=== PATIENT | male | born 1960 | race Caucasian/White ===

== ENCOUNTER 2018-07-23 08:32 | Day surgery (SDC) | payer BC, OTHER ==
[~2018-07-23] VITALS: Ht 172.7 cm; Wt 85.7 kg
[~2018-07-23 08:32] MED LIST: ALLE180T33 PO; BACITRACIN PWD 50,000 UNITS VIAL As Ordered ONE; BUPIVACAINE HCL 0.5% 30 ML VIAL As Ordered ONE; LIDOCAINE 1% MDV 20ML VIAL SQ PRN; LIDOCAINE 2% MDV 20 ML VIAL As Ordered ONE; LIVA2TAB PO; NEOSPORIN GU IRRIG 20 ML VIAL As Ordered ONE; dexameTHASONE 4 MG/ML 1ML VIAL (J1100) As Ordered ONE
[2018-07-23] MEDS ORDERED: LR 1,000 ML IV ONE (08:45)
[2018-07-23] MEDS ORDERED: PROPOFOL 500 MG/50 ML VIAL As Ordered ONE (10:02)
[2018-07-23] MEDS ORDERED: LIDOCAINE 2% INJ 100 MG/5 ML SDV (FOR ANES.) As Ordered ONE (10:02)
[2018-07-23] MEDS ORDERED: fentaNYL 100 MCG/2 ML INJECTION (J3010) As Ordered ONE (10:02)
[2018-07-23] MEDS ORDERED: MIDAZOLAM INJ 2 MG/2 ML VIAL (J2250) As Ordered ONE (10:03)
[2018-07-23] MEDS ORDERED: PERCOCET 5MG/325MG TAB PO PRN (12:45)
[2018-07-23 12:55] VITALS: BP 145/89
--- NOTE | 2018-07-23 13:34 | REP ---
Left foot: Three views portably obtained. History: Status post bunionectomy. Findings: Portably obtained views of the left foot demonstrate the patient is status post first metatarsal osteotomy pinned with a metallic screw. There is overlying soft tissue swelling. Overall mineralization pattern is normal. No other significant finding. Impression: Status post bunionectomy first metatarsal. Electronically Signed by Rancho Kendall MD 07/23/2018 04:41 P
--- NOTE | 2018-07-25 07:48 | RO ---
DATE OF PROCEDURE: 07/23/2018 PREPROCEDURE DIAGNOSES: Hallux valgus metatarsus primus varus deformity left foot. POSTPROCEDURE DIAGNOSES: Hallux valgus metatarsus primus varus deformity left foot with first metatarsal bone cyst distal aspect first metatarsal left foot. PROCEDURE: 1. Nery bunionectomy with internal screw fixation left foot. 2. Excision of bone cyst with autogenous bone graft first metatarsal left foot. SURGEON: Douglas Byers DPM CONSUMER LENDER: None. ANESTHESIA: Local MAC. IRRIGATION: Dilute bacitracin, neomycin and polymyxin B solution. ESTIMATED BLOOD LOSS: Less than 5 mL. HARDWARE UTILIZED: Arthrex headless compression screw 3.0 x 26 mm x 1. DESCRIPTION OF OPERATION: On 07/23/2018, this 58-year-old male was taken from his hospital room to the operating room and placed on the operating room table in the supine position. Following the induction of IV sedation and local and regional anesthesia, the left lower extremity was prepped and draped in the usual aseptic manner. Attention was directed to the patient's left foot and after the ankle pneumatic tourniquet was inflated, the following procedure was performed: NERY BUNIONECTOMY WITH INTERNAL SCREW FIXATION, 3.0 MM X 26 MM X 1, LEFT FOOT: Attention was directed to the patient's left foot where there was noted to be a hallux valgus deformity. At this time, a 6 cm incision was placed over the first metatarsal phalangeal joint medial to the extensor tendon. The incision was deepened through subcutaneous tissues and all coursing venous tributaries were identified, underscored, clamped, cut, ligated and electrocoagulated as necessary. A linear capsulotomy was then performed in the same plane as the original skin incision. The capsular and periosteal structures were then dissected free in one continuous layer dorsal, medial and lateral thus creating a capsular periosteal type envelope. This delivered into view the hypertrophied medial eminence of the first metatarsal which was osteotomized from distal to proximal through and through. Dissection was then carried into the first intermetatarsal space where dissection was carried down to the level of the fibular sesamoid which was released from the conjoined tendon. Attention was directed to the medial surface of the first metatarsal where a V-shaped osteotomy was performed with a long plantar and short dorsal wing. Upon creation of this osteotomy, the huge bone cyst was seen encompassing the first metatarsal. At this time, the following procedure was performed: EXCISION OF BONE CYST FIRST METATARSAL WITH AUTOGENOUS BONE GRAFT: The cyst was then curetted of its lining and this cyst measured approximately 6 mm x 10 mm upon debridement. The debridement was performed and the osteotomy was then transposed approximately 35% of the width of the shaft of the first metatarsal and fixated with an Arthrex headless compression screw 3.0 x 26 mm which gave good compression of the osteotomy. The redundant cortical spike was then osteotomized from dorsal to plantar creating a autogenous bone graft. This was then trimmed into smaller pieces with Ai bone cutting forceps and packed into the subchondral cyst filling the cyst and reconstituting the bone. The wound was then flushed with copious amounts of dilute bacitracin, neomycin and polymyxin B solution. Attention was directed toward closure where the capsular structures were coapted and maintained utilizing #2-0 Monocryl in a simple interrupted fashion. Subcutaneous tissues were coapted and maintained using #4-0 Monocryl in a simple interrupted type fashion. Skin incision coapted and maintained utilizing #5-0 Monocryl in a continuous subcuticular type fashion. This was additionally reinforced with Steri-Strips. Following the completion of the surgical procedure, 4 mg of dexamethasone sodium phosphate was instilled proximal to the surgical site. Attention was directed towards bandaging where a sterile compressive bandage was applied consisting of Adaptic, 4x4s, 4x4 splints, Danna, Kerlix and Coban. The ankle pneumatic tourniquet was then rapidly deflated and instantaneous capillary filling time was noted to digits of 1 through 5 of the patient's left foot. The patient having apparently tolerated the surgical procedure well was taken from the operating room (OR) to the recovery room for further monitoring by the anesthesia department.
== END 2018-07-23 13:05 | disposition home or self-care (01) ==
LOC: M SDC 08:32
PROVIDERS: ATTEND Podiatrist
DX: M20.12 Hallux valgus (acquired), left foot (principal); M85.672 Other cyst of bone, left ankle and foot
CPT/HCPCS: 28106; 28296; 73630; 88300; C1713; J0690; J1100; J2250; J3010

== ENCOUNTER 2018-08-31 05:41 | Day surgery (SDC) | payer BC, OTHER ==
[~2018-08-31] VITALS: Ht 180.3 cm; Wt 87.1 kg
[~2018-08-31 05:41] MED LIST changes: -BACITRACIN PWD 50,000 UNITS VIAL As Ordered ONE; -BUPIVACAINE HCL 0.5% 30 ML VIAL As Ordered ONE; -LIDOCAINE 1% MDV 20ML VIAL SQ PRN; -LIDOCAINE 2% MDV 20 ML VIAL As Ordered ONE; -NEOSPORIN GU IRRIG 20 ML VIAL As Ordered ONE; -dexameTHASONE 4 MG/ML 1ML VIAL (J1100) As Ordered ONE
[2018-08-31] MEDS ORDERED: ceFAZolin SOD 1 GM in D5W MINI-BAG PLUS 50 ML IV ONE (06:00)
[2018-08-31] MEDS ORDERED: LR 1,000 ML IV ONE (06:00)
[2018-08-31] MEDS ORDERED: LIDOCAINE 1% MDV 20ML VIAL SQ PRN (06:00)
[2018-08-31] MEDS ORDERED: SUGAMMADEX SODIUM 500 MG/5 ML VIAL (BRIDION) As Ordered ONE (07:01)
[2018-08-31] MEDS ORDERED: ROCURONIUM BROMIDE 50 MG/5 ML VIAL As Ordered ONE ×2 (07:01→08:49)
[2018-08-31] MEDS ORDERED: PROPOFOL 200 MG/20 ML VIAL As Ordered ONE ×2 (07:01→10:18)
[2018-08-31] MEDS ORDERED: ONDANSETRON 4MG/2ML VIAL (J2405) As Ordered ONE (07:01)
[2018-08-31] MEDS ORDERED: LIDOCAINE 2% INJ 100 MG/5 ML SDV (FOR ANES.) As Ordered ONE ×3 (07:01→10:29)
[2018-08-31] MEDS ORDERED: dexameTHASONE 4 MG/ML 1ML VIAL (J1100) As Ordered ONE (07:01)
[2018-08-31] MEDS ORDERED: KETOROLAC 60 MG/2 ML VIAL (J1885) As Ordered ONE (07:01)
[2018-08-31] MEDS ORDERED: MIDAZOLAM INJ 2 MG/2 ML VIAL (J2250) As Ordered ONE (07:02)
[2018-08-31] MEDS ORDERED: KETAMINE HCL 200 MG/20 ML VIAL As Ordered ONE (07:02)
[2018-08-31] MEDS ORDERED: fentaNYL 100 MCG/2 ML INJECTION (J3010) As Ordered ONE (07:02)
[2018-08-31] MEDS ORDERED: BUPIVACAINE/EPIN 0.25% 30 ML VIAL As Ordered ONE (07:11)
[2018-08-31] MEDS ORDERED: METHOCARBAMOL INJection 1,000 MG, VIAL MATE ADAPTER 1 EACH in NS 250 ML IV ONE (07:45)
--- NOTE | 2018-08-31 09:36 | RO ---
DATE OF PROCEDURE: 08/31/2018 PREOPERATIVE DIAGNOSIS: Right inguinal hernia. POSTOPERATIVE DIAGNOSIS: Right inguinal hernia. PROCEDURE: Robotic-assisted right inguinal hernia repair with ProGrip mesh. SURGEON: Dr. Dudley Sumner FORESTRY HUNTER: Jacqui Adrian (Provided instrument exchange, mesh placement and abdominal wall closure, as well as trocar placement. ESTIMATED BLOOD LOSS: Minimal. FLUIDS: Crystalloid. BRIEF PROCEDURE SUMMARY: The patient was seen in the preoperative area and evaluated for his right inguinal hernia and indeed had a small right inguinal hernia appreciated on his re-examination preoperatively. However, he had been also complaining of some periumbilical discomfort and pain and preoperatively we had seen a minuscule umbilical hernia on his CAT scan. However, he is complaining of pain and discomfort on the lateral abdominal wall lateral to the rectus muscle bilaterally and sharp stabbing pains. I did not feel that this was related to his umbilical hernia and thus I had discussed with him not proceeding with any type of umbilical hernia repair and felt this was more likely secondary to some musculoskeletal complaints that he has. In any case, the patient was brought to the operating room, preoperatively marked on the right inguinal area, and was prepped and draped in the usual sterile fashion. Local lidocaine was placed in the epigastric area after prepping and draping in the usual sterile fashion with preoperative antibiotics given. A Veress needle was placed into the abdominal cavity and insufflated to 15 mm of pressure. A dilating 5 mm trocar was placed in the epigastric area and under direct visualization two lateral 8 mm trocars were placed and the camera port was replaced in the supraumbilical area. Next the patient was placed in steep Trendelenburg position. There was an obvious small direct inguinal hernia and after dissection there was a small lipoma of the cord appreciated. In any case, the peritoneum was incised using monopolar cut scissors and blunt dissection as well as some minimal electrocautery on this loose areolar tissue. It was performed all the way to the cord structures to the indirect hernia sac which revealed mostly some diastasis in this area and a small indirect hernia with evidence of a lipoma of the cord. The lipoma of the cord was reduced and was transected at its base and left in the preperitoneal space. Pancho's ligament was exposed as well as backside of the pubis. Once all this area was exposed, the peritoneum was mobilized quite nicely off the vas vessels. Then a ProGrip mesh was cut to the appropriate size and placed in the preperitoneal space and pressed into position. It covered the direct as well as indirect components quite nicely. The peritoneum was closed with a running #2-0 V-Loc. The trocars were all removed under direct visualization and #4-0 Vicryl was used close the skin incisions. Steri-Strips and a dry sterile dressing was applied. The patient was awakened, extubated and brought to the recovery room awake, alert and hemodynamically stable. Sponge and needle counts were correct times two.
[2018-08-31] MEDS ORDERED: HYDROMORPHONE HCL 0.5 MG/ 0.5 ML SYRINGE (J1170 PER 1) IV PRN (09:45)
[2018-08-31] MEDS ORDERED: fentaNYL 100 MCG/2 ML INJECTION (J3010) IV PRN (09:45)
[2018-08-31] MEDS ORDERED: LR 1,000 ML IV SCH ×2 (09:45→10:00)
[2018-08-31] MEDS ORDERED: ONDANSETRON 4MG/2ML VIAL (J2405) IV PRN (10:00)
[2018-08-31] MEDS ORDERED: NORCO, ANEXSIA 5/325MG TABLET (HYDROcodone/ACETAMINOPHEN) PO PRN (10:00)
[2018-08-31 11:45] VITALS: BP 152/82
[2018-08-31] MEDS ORDERED: KETOROLAC 30 MG/ML VIAL (J1885) IV SCH (13:00)
== END 2018-08-31 12:00 | disposition home or self-care (01) ==
LOC: M SDC 05:41
PROVIDERS: ATTEND Surgery
DX: K40.90 Unilateral inguinal hernia, without obstruction or gangrene, not specified as recurrent (principal); E78.5 Hyperlipidemia, unspecified; K21.9 Gastro-esophageal reflux disease without esophagitis; Z91.040 Latex allergy status; Z91.030 Bee allergy status; Z88.8 Allergy status to other drugs, medicaments and biological substances; Z79.899 Other long term (current) drug therapy
CPT/HCPCS: 49650; C1781; J0690; J1100; J1885; J2250; J2405; J2800; J3010

== ENCOUNTER → 2018-10-11 | Outpatient (CLI) | payer OTHER ==
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
== END ==
LOC: M PAIN 08:45
PROVIDERS: ATTEND Anesthesiology
DX: M79.18 Myalgia, other site (principal); M54.2 Cervicalgia; M25.511 Pain in right shoulder; M47.812 Spondylosis without myelopathy or radiculopathy, cervical region; G89.29 Other chronic pain; E78.00 Pure hypercholesterolemia, unspecified; M19.90 Unspecified osteoarthritis, unspecified site; Z79.899 Other long term (current) drug therapy; Z88.8 Allergy status to other drugs, medicaments and biological substances; Z91.09 Other allergy status, other than to drugs and biological substances; Z91.040 Latex allergy status; Z91.030 Bee allergy status

== ENCOUNTER → 2018-12-29 | Outpatient (CLI) | payer OTHER ==
[~2018-12-29] MED LIST changes: +BUPIVACAINE HCL 0.25% 10 ML VIAL As Ordered ONE; +BUPIVACAINE HCL 0.25% 30 ML VIAL As Ordered ONE; +TRIAMCINOLONE ACETONIDE SUSP 40 MG/ML VIAL (J3301) As Ordered ONE
--- NOTE | 2019-01-07 00:47 | ECWPNPC ---
PATIENT NAME: ORLIN ORTA : 1960 GENDER: MALE VISIT DATE: 12/29/2018 DISCHARGE DATE: 12/29/18 1143 VISIT LOCKED DATE TIME: PHYSICIAN: AUGUSTO PEREZ MD RESOURCE: AUGUSTO PEREZ MD REASON FOR APPOINTMENT 1. TPI RIGHT SHOULDER HISTORY OF PRESENT ILLNESS HISTORY OF PRESENT ILLNESS: PAIN THE PATIENT DESCRIBES THE PAIN... FALL RISK SCREENING: SCREENING :NO FALLS REPORTED IN THE LAST YEAR CURRENT MEDICATIONS TAKING ROSANNA 180 MG TABLET 1 TABLET NEEDED ORALLY ONCE A DAY, NOTES: 4-5 DAYS AGO TAKING FLAXSEED OIL 1000 MG CAPSULE DIRECTED ORALLY DAILY, NOTES: 12/29 629 TAKING VITAMIN B COMPLEX - TABLET DIRECTED ORALLY DAILY, NOTES: 3 DAYS AGO TAKING VIAGRA 100 MG TABLET DIRECTED ORALLY 1 TAB 1 HOUR PRIOR TO SEXUALLY INTERCOURSE, NOTES: NONE RECENT NOT-TAKING LIVALO 2 MG TABLET 1 TABLET ORALLY ONCE A DAY NOT-TAKING FISH OIL 306 MG CAPSULE ORALLY DISCONTINUED CIPRO 500 MG TABLET 1 TABLET ORALLY TWICE A DAY DISCONTINUED ZETIA 10 MG TABLET 1 TABLET ORALLY ONCE A DAY DISCONTINUED CVS VITAMIN B-6 50 MG TABLET 1 TABLET ORALLY ONCE A DAY DISCONTINUED ATORVASTATIN CALCIUM 10 MG TABLET 1 TABLET ORALLY ONCE A DAY DISCONTINUED NAPROXEN 500 MG TABLET 1 TABLET NEEDED ORALLY EVERY 12 HRS DISCONTINUED XIAFLEX 0.9 MG SOLUTION RECONSTITUTED 0.58 MG INTO PENILE PLAQUE(S) INJECTION UP TO 2 TIMES APPROXIMATELY EVERY 6 WEEKS MEDICATION LIST REVIEWED AND RECONCILED WITH THE PATIENT PAST MEDICAL HISTORY PEYRONIE'S DISEASE HYPERCHOLESTEROLEMIA BACK PAIN ARTHRITIS ENLARGED SPLEEN AND LIVER HERNIATED DISKS R SHOULDER INJURY- SEEING DR BREWER RIGHT NECK AND SHOULDER PAIN ALLERGIES LATEX (FOR ALLERGY USE ONLY): SORES/HIVES - ALLERGY BEE STING: ANAPHYLAXIS - ALLERGY STATINS: ITCHING - ALLERGY SURGICAL HISTORY 3 LEFT KNEE SURGERIES (SCAR TISSUE) 2013 & UNKNOWN YEARS 3 RIGHT KNEE SURGERIES - ACL REPAIR, SCREWS PLACED LEFT AND RIGHT INGUINAL HERNIA XIAFLEX INJECTIONS CYST REMOVAL ON LEFT FOOT W/ SCREW PLACEMENT 06/2018 RIGHT CARPAL TUNNEL 07/2018 FAMILY HISTORY FATHER: , HEART DISEASE, DIAGNOSED WITH HEART DISEASE, OTHER MOTHER: , HEART DISEASE SIBLINGS: 1 BROTHER [place], HYPERTENSION; 1 SISTER HEART ISSUES, HYPERTENSION DAUGHTER(S): ALIVE MATERNAL GRAND FATHER: LUNG CANCER MATERNAL GRAND MOTHER: DM, CVA, ARTHRITIS 1 BROTHER(S) , 1 SISTER(S) . 3DAUGHTER(S) - HEALTHY. FATHER - ANEURYSMMOTHER - CHFBROTHER - HEART ATTACKSNO KNOWN FAMILY HISTORY OF ANY UROLOGICALLY RELATED DISEASES\/CANCERS. SOCIAL HISTORY GENERAL: TOBACCO USE ARE YOU A:: NEVER SMOKER. OTHERS AT HOME: SPOUSE. EDUCATION LEVEL OF EDUCATION:FINISHED [employer] DEGREE DIET: REGULAR. LANGUAGE FRISIAN. RECREATIONAL DRUG USE DRUG USE?NO EXERCISE: WALKS. LEARNING BARRIERS / SPECIAL NEEDS BARRIERS TO LEARNING?NO HEARING IMPAIRED?NO VISION IMPAIRED?YES :CORRECTIVE LENSES COGNITIVELY IMPAIRED?NO READINESS TO LEARN?YES LEARNING PREFERENCES?YES :BOOKLETS, OTHER (PLEASE COMMENT) HANDS-ON LEARNING CAPABILITIES PRESENT?YES EMOTIONAL BARRIERS?NO SPECIAL DEVICES?NO BLACK TOP MACHINE OPERATOR NEEDED?NO PAIN CLINIC PFS, CLERGY, PUBLIC HEALTH REFERRALS HAS THE PATIENT BEEN EDUCATED REGARDING HIS/HER PLAN OF CARE?YES HAS THE PATIENT BEEN EDUCATED REGARDING PAIN, THE RISK FOR PAIN, THE IMPORTANCE OF EFFECTIVE PAIN MANAGEMENT, AND THE PAIN ASSESSMENT PROCESS?YES LATEX QUESTIONNAIRE LATEX ALLERGY : HAVE YOU EVER DEVELOPED ANY TYPE OF REACTION AFTER HANDLING LATEX PRODUCTS SUCH RUBBER GLOVES, CONDOMS, DIAPHRAGMS, BALLOONS, SOCKS, OR UNDERWEAR?YES - PLEASE INDICATE :RUBBER GLOVES LATEX ALLERGY : HAVE YOU EVER DEVELOPED ANY TYPE OF REACTION DURING OR AFTER DENTAL APPOINTMENT, VAGINAL/RECTAL EXAMINATION, SURGICAL PROCEDURE, OR ANY OTHER EXPOSURE?YES - PLEASE INDICATE :DENTAL PROCEDURE LATEX RISK : HAVE YOU EVER HAD ANY DIFFICULTY BREATHING OR HIVES AFTER EATING OR HANDLING ANY FRUITS, OR VEGETABLES; SUCH KIWI, BANANAS, STONE FRUITS, OR CHESTNUTSNO LATEX RISK : DO YOU HAVE A PREVIOUS PERSONAL HISTORY OF MORE THAN NINE SURGERIES, SPINA BIFIDA, OR REPEATED CATHERTIZATIONS? YES - PLEASE INDICATE : > 9 SURGERIES LATEX RISK : ARE YOU FREQUENTLY EXPOSED TO LATEX PRODUCTS IN YOUR OCCUPATION?NO DATE ASKED : 12/29/2018 CAFFEINE 1-2/DAY,. ADVANCE DIRECTIVE ADVANCE DIRECTIVE DISCUSSED WITH PATIENT:YES 12/29/18 PT. DOES NOT HAVE ANY ADVANCED DIRECTIVES AND HE DECLINES HCP INFORMATION AT THIS TIME. AD AMISH NO SHINTO BELIEFS THAT WOULD IMPACT HEALTH CARE. MARITAL STATUS: . ALCOHOL SCREENING POINTS: 6, INTERPRETATION: POSITIVE. OCCUPATION: RETIRED. SEXUAL HX HAD SEX IN THE LAST 12 MONTHS (VAGINAL, ORAL, OR ANAL)?: YES, WITH: WOMEN ONLY, USE PROTECTION?: NO, PREVENTION STRATEGIES DISCUSSED:: OTHER, HAVE YOU EVER HAD AN STD?: NO. REVIEWED WITH PATIENT 10/11/18 3257 JS. HOSPITALIZATION/MAJOR DIAGNOSTIC PROCEDURE SURGERY RELATED REVIEW OF SYSTEMS REVIEWED BY: PROVIDER: . CONSTITUTIONAL: ANY CHANGE IN YOUR MEDICAL CONDITION? NO . CHILLS NO . FEVER NO . INFECTION: DO YOU HAVE NEW INFECTIONS? NO . DO YOU HAVE HISTORY OF MRSA? NO . MUSCULOSKELETAL: ANY NEW PATTERNS OF PAIN OR NUMBNESS? YES, PAIN AND NUMBNESS IS GOING DOWN HIS ENTIRE RIGHT ARM . GASTROENTEROLOGY: ANY NEW CHANGE IN BOWEL CONTROL? NO . GENITOURINARY: ANY NEW CHANGE IN BLADDER CONTROL? NO . IS THERE A CHANCE YOU COULD BE ? NO . HEMATOLOGY/LYMPH: DO YOU TAKE ANY BLOOD THINNERS? (FOR EXAMPLE- COUMADIN, PLAVIX, AGGRENOX, PLATEL, PRADAXA, OR XARELTO) NO . WHEN WAS YOUR LAST DOSE? DATE: TIME: . NEUROLOGY: HAVE YOU FALLEN IN THE PAST 12 MONTHS? NO . ANY NEW EXTREMITY NUMBNESS OR WEAKNESS? YES, PAIN AND NUMBNESS ENTIRE RIGHT ARM FOR THE PAST 3-4 WEEKS. BOTH HANDS GO NUMB WHEN HE SLEEPS AT NIGHT . CARDIOLOGY: DO YOU HAVE A PACEMAKER OR DEFIBRILLATOR? NO . RESPIRATORY: HAVE YOU BEEN SICK IN THE PAST WEEK? NO . FEVER NO . FLU LIKE SYMPTOMS? NO . COUGH NO . INTEGUMENTARY: DO YOU HAVE ANY RASHES OR OPEN SORES? NO . ALLERGIC/IMMUNO: ARE YOU ALLERGIC TO IV DYE? NO . ANY NEW ALLERGIES? NO . PSYCHIATRIC: DO YOU HAVE THOUGHTS OF HURTING YOURSELF OR SOMEONE ELSE? NO . ARE YOU ABUSED, NEGLECTED, OR IN AN UNSAFE ENVIRONMENT? NO . ENDOCRINOLOGY: ARE YOU DIABETIC? NO . OTHER: DO YOU NEED ANY PRESCRIPTIONS? NO . IF YES, PLEASE LIST: ____ . ANY NEW PROBLEMS WITH YOUR MEDICATIONS? NO . WHEN DID YOU LAST EAT? 12/28/18 1800 . WHEN DID YOU LAST DRINK? 12/29/18 0630 . WHAT DID YOU LAST DRINK? COFFEE WITH MILK. DR. PEREZ AWARE AND IN TO SPEAK WITH PT. OKAY TO PROCEED THE PROCEDURE. . NAME OF PERSON DRIVING YOU HOME? MARIUSZ . DO YOU HAVE ANY OTHER QUESTIONS OR CONCERNS NO . VITAL SIGNS WT 190.2 LBS, HT 71 IN, BMI 26.52 INDEX, BP 136/86 MM HG, HR 51 /MIN, RR 18 /MIN, TEMP 98.6 F, OXYGEN SAT % 94%, SAFE IN ENV? (Y/N) Y, NA INITIALS AW 0941, REVIEWED BY: AD. ASSESSMENTS MYALGIA, OTHER SITE - M79.18 (PRIMARY) PROCEDURES PN TRIGGER POINT INJECTION WITH STEROIDS PRE PROCEDURE DIAGNOSIS 1. MYALGIA 2. PAIN AT RIGHT SHOULDER AREA POST PROCEDURE DIAGNOSIS 1. MYALGIA 2. PAIN AT RIGHT SHOULDER AREA PROCEDURE TRIGGER POINT INJECTION AT RIGHT SHOULDER AREA SURGEON DR. AUGUSTO PEREZ LIVESTOCK RANCHER NONE ANESTHESIA LOCAL PRE PROCEDURE NOTE THE PATIENT HAS A HISTORY OF CHRONIC PAIN AT THE RIGHT SHOULDER AREA. I EVALUATE THE PATIENT AND REVIEWED THE CHART. THERE IS EVIDENCE OF BANDS OF TISSUE WITH RESTRICTION OF MOVEMENT AND PRESENCE OF TRIGGER POINT AT THE AFFECTED AREA. I WENT OVER THE RISKS, ALTERNATIVES, AND BENEFITS ASSOCIATED WITH THIS PROCEDURE. THE PATIENT WOULD LIKE TO PROCEED AND GIVE CONSENT TO PERFORMED THE PROCEDURE. THE PATIENT DENIES UNEXPLAINABLE WEIGHT LOSS, FEVER, CHILLS, OR NEW CHANGES IN URINARY OR BOWEL CONTROL DESCRIPTION OF PROCEDURE THE PATIENT WAS BROUGHT TO THE PROCEDURE ROOM AND PLACED IN THE SITTING POSITION. THE AREA WAS CLEANED WITH ALCOHOL. THE PROCEDURE WAS DONE USING ASEPTIC STERILE TECHNIQUE. I CHECKED LATERALITY AND THE LEVEL WHERE THE PROCEDURE WAS GOING TO BE PERFORMED WITH THE PATIENT AND THE SUPPORTING STAFF AT THE MOMENT OF THE TIME OUT IN THE PROCEDURE ROOM. USING A 25-GAUGE NEEDLE, TRIGGER POINTS WERE INJECTED AT THE RIGHT SHOULDER AREA WITH A TOTAL OF 40 ML OF BUPIVACAINE 0.25% AND KENALOG 40 MG. THERE WAS NO EVIDENCE OF BLOOD, PARESTHESIA OR CEREBROSPINAL FLUID DURING THE PROCEDURE. THE PATIENT WAS SENT TO THE RECOVERY ROOM. THE PATIENT WAS MOVING THE EXTREMITIES AND DOING WELL. THERE WAS NO COMPLICATION DURING THE PROCEDURE POST PROCEDURE NOTE THE PATIENT WILL BE SEEN IN A FOLLOW UP IN THE NEXT FEW WEEKS. INSTRUCTIONS WERE GIVEN, QUESTIONS WERE ANSWERED, AND THE PATIENT EXPRESSED UNDERSTANDING AND AGREES WITH THE PLAN. I, CONNIE ARCHULETA, DOCUMENTED THE ABOVE INFORMATION ACTING A SCRIBE FOR DR. PEREZ. I HAVE REVIEWED THE ABOVE DOCUMENT, WRITTEN BY CONNIE MATTA AND I VERIFY THAT IT IS ACCURATE. PROCEDURE CODES 05343 INJ TRIGGER POINT 06/30 [facility] [place] DISPOSITION & COMMUNICATION FOLLOW UP 3 WEEKS ELECTRONICALLY SIGNED BY AUGUSTO PEREZ MD, MD ON 01/06/2019 AT 01:53 PM EDT DISCLAIMER : THIS IS A VISIT SUMMARY EXTRACTED FROM THE [employer] CHART. IT IS NOT A COPY OF THE [employer] PROGRESS NOTE. MTDD
== END ==
LOC: M PAIN 09:30
PROVIDERS: ATTEND Anesthesiology
DX: M79.18 Myalgia, other site (principal); E78.00 Pure hypercholesterolemia, unspecified; M19.90 Unspecified osteoarthritis, unspecified site; R16.2 Hepatomegaly with splenomegaly, not elsewhere classified; M54.2 Cervicalgia; M25.511 Pain in right shoulder; Z79.899 Other long term (current) drug therapy; Z91.040 Latex allergy status; Z91.030 Bee allergy status; Z88.8 Allergy status to other drugs, medicaments and biological substances
CPT/HCPCS: 20552; J3301

== ENCOUNTER → 2019-02-08 | Outpatient (CLI) | payer OTHER ==
[~2019-02-08] MED LIST changes: -BUPIVACAINE HCL 0.25% 10 ML VIAL As Ordered ONE; -BUPIVACAINE HCL 0.25% 30 ML VIAL As Ordered ONE; -TRIAMCINOLONE ACETONIDE SUSP 40 MG/ML VIAL (J3301) As Ordered ONE
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
== END ==
LOC: M PAIN 14:45
PROVIDERS: ATTEND Anesthesiology
DX: M79.18 Myalgia, other site (principal); M25.511 Pain in right shoulder; G89.29 Other chronic pain; E78.00 Pure hypercholesterolemia, unspecified; M19.90 Unspecified osteoarthritis, unspecified site; Z88.8 Allergy status to other drugs, medicaments and biological substances; Z91.030 Bee allergy status; Z91.040 Latex allergy status; Z79.899 Other long term (current) drug therapy

== ENCOUNTER → 2019-03-24 | Outpatient (CLI) | payer OTHER ==
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
== END ==
LOC: M PAIN 11:45
PROVIDERS: ATTEND Anesthesiology
DX: M79.18 Myalgia, other site (principal); M54.2 Cervicalgia; M25.511 Pain in right shoulder; M25.512 Pain in left shoulder; G89.29 Other chronic pain; E78.00 Pure hypercholesterolemia, unspecified; M19.90 Unspecified osteoarthritis, unspecified site; Z88.8 Allergy status to other drugs, medicaments and biological substances; Z91.030 Bee allergy status; Z91.040 Latex allergy status; Z79.899 Other long term (current) drug therapy

== ENCOUNTER → 2019-05-18 | Outpatient (CLI) | payer OTHER ==
[~2019-05-18] MED LIST changes: +BUPIVACAINE HCL 0.25% 10 ML VIAL As Ordered ONE; +BUPIVACAINE HCL 0.25% 30 ML VIAL As Ordered ONE; +TRIAMCINOLONE ACETONIDE SUSP 40 MG/ML VIAL (J3301) As Ordered ONE
--- NOTE | 2019-05-26 02:12 | ECWPNPC ---
PATIENT NAME: ORLIN ORTA : 1960 GENDER: MALE VISIT DATE: 05/18/2019 DISCHARGE DATE: 05/18/19 1623 VISIT LOCKED DATE TIME: PHYSICIAN: AUGUSTO PEREZ MD RESOURCE: AUGUSTO PEREZ MD REASON FOR APPOINTMENT 1. TPI HISTORY OF PRESENT ILLNESS HISTORY OF PRESENT ILLNESS: PAIN THE PATIENT DESCRIBES THE PAIN... FALL RISK SCREENING: SCREENING :NO FALLS REPORTED IN THE LAST YEAR CURRENT MEDICATIONS TAKING ROSANNA 180 MG TABLET 1 TABLET NEEDED ORALLY ONCE A DAY, NOTES: NONE RECENT TAKING FLAXSEED OIL 1000 MG CAPSULE DIRECTED ORALLY DAILY, NOTES: 05/18 7AM TAKING VITAMIN B COMPLEX - TABLET DIRECTED ORALLY DAILY, NOTES: 05/18 7AM NOT-TAKING VIAGRA 100 MG TABLET DIRECTED ORALLY 1 TAB 1 HOUR PRIOR TO SEXUALLY INTERCOURSE, NOTES: NONE RECENT NOT-TAKING LIVALO 2 MG TABLET 1 TABLET ORALLY ONCE A DAY NOT-TAKING FISH OIL 306 MG CAPSULE ORALLY MEDICATION LIST REVIEWED AND RECONCILED WITH THE PATIENT PAST MEDICAL HISTORY PEYRONIE'S DISEASE HYPERCHOLESTEROLEMIA BACK PAIN ARTHRITIS ENLARGED SPLEEN AND LIVER HERNIATED DISKS R SHOULDER INJURY- SEEING DR BREWER RIGHT NECK AND SHOULDER PAIN ALLERGIES LATEX (FOR ALLERGY USE ONLY): SORES/HIVES - ALLERGY BEE STING: ANAPHYLAXIS - ALLERGY STATINS: ITCHING - ALLERGY SURGICAL HISTORY 3 LEFT KNEE SURGERIES (SCAR TISSUE) 2012 & UNKNOWN YEARS 3 RIGHT KNEE SURGERIES - ACL REPAIR, SCREWS PLACED LEFT AND RIGHT INGUINAL HERNIA XIAFLEX INJECTIONS CYST REMOVAL ON LEFT FOOT W/ SCREW PLACEMENT 06/2018 RIGHT CARPAL TUNNEL 07/2018 FAMILY HISTORY FATHER: , HEART DISEASE, DIAGNOSED WITH UNSPECIFIED HEART DISEASE, OTHER SPECIFIED CONDITIONS INFLUENCING HEALTH STATUS MOTHER: , UNSPECIFIED HEART DISEASE SIBLINGS: 1 BROTHER [place], HYPERTENSION; 1 SISTER HEART ISSUES, HYPERTENSION DAUGHTER(S): ALIVE MATERNAL GRAND FATHER: LUNG CANCER MATERNAL GRAND MOTHER: DM, CVA, ARTHRITIS 1 BROTHER(S) , 1 SISTER(S) . 3DAUGHTER(S) - HEALTHY. FATHER - ANEURYSMMOTHER - CHFBROTHER - HEART ATTACKSNO KNOWN FAMILY HISTORY OF ANY UROLOGICALLY RELATED DISEASES\/CANCERS. SOCIAL HISTORY GENERAL: TOBACCO USE ARE YOU A:: NEVER SMOKER. OTHERS AT HOME: SPOUSE. EDUCATION LEVEL OF EDUCATION:FINISHED [employer] DEGREE DIET: REGULAR. LANGUAGE [place] CITIZEN. RECREATIONAL DRUG USE DRUG USE?NO EXERCISE: WALKS. LEARNING BARRIERS / SPECIAL NEEDS BARRIERS TO LEARNING?NO HEARING IMPAIRED?NO VISION IMPAIRED?YES COGNITIVELY IMPAIRED?NO :CORRECTIVE LENSES READINESS TO LEARN?YES LEARNING PREFERENCES?YES :BOOKLETS, OTHER (PLEASE COMMENT) HANDS-ON LEARNING CAPABILITIES PRESENT?YES EMOTIONAL BARRIERS?NO SPECIAL DEVICES?NO SPORTS INTERN NEEDED?NO PAIN CLINIC PFS, CLERGY, PUBLIC HEALTH REFERRALS HAS THE PATIENT BEEN EDUCATED REGARDING HIS/HER PLAN OF CARE?YES HAS THE PATIENT BEEN EDUCATED REGARDING PAIN, THE RISK FOR PAIN, THE IMPORTANCE OF EFFECTIVE PAIN MANAGEMENT, AND THE PAIN ASSESSMENT PROCESS?YES LATEX QUESTIONNAIRE LATEX ALLERGY : HAVE YOU EVER DEVELOPED ANY TYPE OF REACTION AFTER HANDLING LATEX PRODUCTS SUCH RUBBER GLOVES, CONDOMS, DIAPHRAGMS, BALLOONS, SOCKS, OR UNDERWEAR?YES - PLEASE INDICATE :RUBBER GLOVES LATEX ALLERGY : HAVE YOU EVER DEVELOPED ANY TYPE OF REACTION DURING OR AFTER DENTAL APPOINTMENT, VAGINAL/RECTAL EXAMINATION, SURGICAL PROCEDURE, OR ANY OTHER EXPOSURE?YES - PLEASE INDICATE :DENTAL PROCEDURE LATEX RISK : HAVE YOU EVER HAD ANY DIFFICULTY BREATHING OR HIVES AFTER EATING OR HANDLING ANY FRUITS, OR VEGETABLES; SUCH KIWI, BANANAS, STONE FRUITS, OR CHESTNUTSNO LATEX RISK : DO YOU HAVE A PREVIOUS PERSONAL HISTORY OF MORE THAN NINE SURGERIES, SPINA BIFIDA, OR REPEATED CATHERIZATIONS? YES - PLEASE INDICATE : > 9 SURGERIES LATEX RISK : ARE YOU FREQUENTLY EXPOSED TO LATEX PRODUCTS IN YOUR OCCUPATION?NO DATE ASKED : 05/18/2019 CAFFEINE 1-2/DAY,. ADVANCE DIRECTIVE ADVANCE DIRECTIVE DISCUSSED WITH PATIENT:YES PT. DOES NOT HAVE ANY ADVANCED DIRECTIVES AND HE DECLINES HCP INFORMATION AT THIS TIME. ADVENTISM NO ISLAM BELIEFS THAT WOULD IMPACT HEALTH CARE. MARITAL STATUS: . ALCOHOL SCREENING POINTS: 6, INTERPRETATION: POSITIVE. OCCUPATION: RETIRED. SEXUAL HX HAD SEX IN THE LAST 12 MONTHS (VAGINAL, ORAL, OR ANAL)?: YES, WITH: WOMEN ONLY, USE PROTECTION?: NO, PREVENTION STRATEGIES DISCUSSED:: OTHER, HAVE YOU EVER HAD AN STD?: NO. REVIEWED WITH PATIENT 10/11/18 3709 JS REVIEWED WITH PT 02/08/19 9473 BV. HOSPITALIZATION/MAJOR DIAGNOSTIC PROCEDURE SURGERY RELATED REVIEW OF SYSTEMS REVIEWED BY: PROVIDER: . CONSTITUTIONAL: ANY CHANGE IN YOUR MEDICAL CONDITION? NO . CHILLS NO . FEVER NO . INFECTION: DO YOU HAVE NEW INFECTIONS? NO . DO YOU HAVE HISTORY OF MRSA? NO . MUSCULOSKELETAL: ANY NEW PATTERNS OF PAIN OR NUMBNESS? PT STATES THAT HE SLID ON ICE AND LANDED ON HAND/ARM FUNNY, FELT NUMBNESS IN FINGERS FOR A LITTLE WHILE, SENSATION HAS RESOLVED. MD PEREZ AWARE . GASTROENTEROLOGY: ANY NEW CHANGE IN BOWEL CONTROL? NO . GENITOURINARY: ANY NEW CHANGE IN BLADDER CONTROL? NO . IS THERE A CHANCE YOU COULD BE ? NO . HEMATOLOGY/LYMPH: DO YOU TAKE ANY BLOOD THINNERS? (FOR EXAMPLE- COUMADIN, PLAVIX, AGGRENOX, PLATEL, PRADAXA, OR XARELTO) NO . WHEN WAS YOUR LAST DOSE? DATE: TIME: . NEUROLOGY: HAVE YOU FALLEN IN THE PAST 12 MONTHS? NO . ANY NEW EXTREMITY NUMBNESS OR WEAKNESS? NO . CARDIOLOGY: DO YOU HAVE A PACEMAKER OR DEFIBRILLATOR? NO . RESPIRATORY: HAVE YOU BEEN SICK IN THE PAST WEEK? NO . FEVER NO . FLU LIKE SYMPTOMS? NO . COUGH NO . INTEGUMENTARY: DO YOU HAVE ANY RASHES OR OPEN SORES? NO . ALLERGIC/IMMUNO: ARE YOU ALLERGIC TO IV DYE? NO . ANY NEW ALLERGIES? NO . PSYCHIATRIC: DO YOU HAVE THOUGHTS OF HURTING YOURSELF OR SOMEONE ELSE? NO . ARE YOU ABUSED, NEGLECTED, OR IN AN UNSAFE ENVIRONMENT? NO . ENDOCRINOLOGY: ARE YOU DIABETIC? NO . OTHER: DO YOU NEED ANY PRESCRIPTIONS? NO . IF YES, PLEASE LIST: ____ . ANY NEW PROBLEMS WITH YOUR MEDICATIONS? NO . WHEN DID YOU LAST EAT? 05/17 5PM . WHEN DID YOU LAST DRINK? 05/17 5PM . WHAT DID YOU LAST DRINK? WATER . NAME OF PERSON DRIVING YOU HOME? MARIUSZ - . DO YOU HAVE ANY OTHER QUESTIONS OR CONCERNS NO . VITAL SIGNS WT 181 LBS, HT 71 IN, BMI 25.24 INDEX, BP 134/79 MM HG, HR 56 /MIN, RR 18 /MIN, TEMP 97.8 F, OXYGEN SAT % 99%, SAFE IN ENV? (Y/N) Y, NA INITIALS IL 13:48, REVIEWED BY: JOSE. ASSESSMENTS MYALGIA, OTHER SITE - M79.18 (PRIMARY) PROCEDURES PN TRIGGER POINT INJECTION NO STEROIDS DATE OF PROCEDURE : PRE PROCEDURE DIAGNOSIS 1. MYALGIA 2. PAIN AT RIGHT SHOULDER AREA POST PROCEDURE DIAGNOSIS 1. MYALGIA 2. PAIN AT RIGHT SHOULDER AREA. PROCEDURE TRIGGER POINT INJECTION AT RIGHT SHOULDER AREA. SURGEON DR. AUGUSTO PEREZ WAREHOUSE RECEIVING SUPERVISOR NONE ANESTHESIA LOCAL PRE PROCEDURE NOTE 59 YEAR-OLD PATIENT WITH HISTORY OF CHRONIC PAIN AT THE RIGHT SHOULDER AREA. I EVALUATED THE PATIENT AND REVIEWED THE CHART. THERE IS EVIDENCE OF BANDS OF TISSUE WITH RESTRICTION OF MOVEMENT AND PRESENCE OF TRIGGER POINT AT THE AFFECTED AREA. I WENT OVER THE RISKS, ALTERNATIVES, AND BENEFITS ASSOCIATED WITH THIS PROCEDURE. THE PATIENT WOULD LIKE TO PROCEED AND GAVE CONSENT TO PERFORM THE PROCEDURE. THE PATIENT DENIES UNEXPLAINABLE WEIGHT LOSS, FEVER, CHILLS, OR NEW CHANGES IN URINARY OR BOWEL CONTROL. DESCRIPTION OF PROCEDURE THE PATIENT WAS BROUGHT TO THE PROCEDURE ROOM AND PLACED IN THE SITTING POSITION. THE AREA WAS CLEANED WITH ALCOHOL. THE PROCEDURE WAS DONE USING ASEPTIC STERILE TECHNIQUES. I CHECKED LATERALITY AND THE LEVEL WHERE THE PROCEDURE WAS GOING TO BE PERFORMED WITH THE PATIENT AND THE SUPPORTING STAFF AT THE MOMENT OF THE TIME OUT IN THE PROCEDURE ROOM. USING A 25-GAUGE NEEDLE, TRIGGER POINTS WERE INJECTED WITH A TOTAL OF 40 ML OF BUPIVACAINE 0.25%. AGREED WITH THE PATIENT THE PROCEDURE WAS DONE WITHOUT STEROIDS. THERE WAS NO EVIDENCE OF BLOOD, PARESTHESIA OR CEREBROSPINAL FLUID DURING THE PROCEDURE. THE PATIENT WAS SENT TO THE RECOVERY ROOM. THE PATIENT WAS MOVING THE EXTREMITIES AND DOING WELL. THERE WAS NO COMPLICATION DURING THE PROCEDURE. POST PROCEDURE NOTE THE PATIENT WILL BE SEEN IN A FOLLOW UP IN THE NEXT FEW WEEKS. INSTRUCTIONS WERE GIVEN, QUESTIONS WERE ANSWERED, AND THE PATIENT EXPRESSED UNDERSTANDING AND AGREED WITH THE PLAN. I, ISAK CHAWLA, DOCUMENTED THE ABOVE INFORMATION ACTING A SCRIBE FOR DR. PEREZ. I HAVE REVIEWED THE ABOVE DOCUMENT, WRITTEN BY ISAK CHAWLA SCRIBGuy AND I VERIFY THAT IT IS ACCURATE. PROCEDURE CODES 55349 INJ TRIGGER POINT 06/30 [facility] DISPOSITION & COMMUNICATION FOLLOW UP 3 WEEKS ELECTRONICALLY SIGNED BY AUGUSTO PEREZ MD, MD ON 05/25/2019 AT 04:01 PM EST DISCLAIMER : THIS IS A VISIT SUMMARY EXTRACTED FROM THE [employer] CHART. IT IS NOT A COPY OF THE [employer] PROGRESS NOTE. ROSA
== END ==
LOC: M PAIN 13:30
PROVIDERS: ATTEND Anesthesiology
DX: M79.18 Myalgia, other site (principal); E78.00 Pure hypercholesterolemia, unspecified; Z88.8 Allergy status to other drugs, medicaments and biological substances; Z91.030 Bee allergy status; Z91.040 Latex allergy status; Z79.899 Other long term (current) drug therapy
CPT/HCPCS: 20552; J3301

== ENCOUNTER → 2019-08-05 | Outpatient (CLI) | payer OTHER ==
[~2019-08-05] MED LIST changes: -BUPIVACAINE HCL 0.25% 10 ML VIAL As Ordered ONE
--- NOTE | 2019-08-12 02:38 | ECWPNPC ---
PATIENT NAME: ORLIN ORTA : 1960 GENDER: MALE VISIT DATE: 08/05/2019 DISCHARGE DATE: 08/05/19 1036 VISIT LOCKED DATE TIME: PHYSICIAN: AUGUSTO PEREZ MD RESOURCE: AUGUSTO PEREZ MD REASON FOR APPOINTMENT 1. TPI OF RIGHT SHOULDER NO FAULT-PT ON THE WAY-DELAYED FROM [facility]-MAY BE A LITTLE LATE HISTORY OF PRESENT ILLNESS HISTORY OF PRESENT ILLNESS: PAIN THE PATIENT DESCRIBES THE PAIN... FALL RISK SCREENING: SCREENING :NO FALLS REPORTED IN THE LAST YEAR CURRENT MEDICATIONS TAKING ROSANNA 180 MG TABLET 1 TABLET NEEDED ORALLY ONCE A DAY, NOTES: HAS NOT USED TAKING FLAXSEED OIL 1000 MG CAPSULE DIRECTED ORALLY DAILY, NOTES: 08/04/2019 AM TAKING VITAMIN B COMPLEX - TABLET DIRECTED ORALLY DAILY, NOTES: 08/04/2019 AM NOT-TAKING VIAGRA 100 MG TABLET DIRECTED ORALLY 1 TAB 1 HOUR PRIOR TO SEXUALLY INTERCOURSE, NOTES: NONE RECENT NOT-TAKING LIVALO 2 MG TABLET 1 TABLET ORALLY ONCE A DAY NOT-TAKING FISH OIL 306 MG CAPSULE ORALLY MEDICATION LIST REVIEWED AND RECONCILED WITH THE PATIENT PAST MEDICAL HISTORY PEYRONIE'S DISEASE HYPERCHOLESTEROLEMIA BACK PAIN ARTHRITIS ENLARGED SPLEEN AND LIVER HERNIATED DISKS R SHOULDER INJURY- SEEING DR BREWER RIGHT NECK AND SHOULDER PAIN ALLERGIES LATEX (FOR ALLERGY USE ONLY): SORES/HIVES - ALLERGY BEE STING: ANAPHYLAXIS - ALLERGY STATINS: ITCHING - ALLERGY SURGICAL HISTORY 3 LEFT KNEE SURGERIES (SCAR TISSUE) 2013 & UNKNOWN YEARS 3 RIGHT KNEE SURGERIES - ACL REPAIR, SCREWS PLACED LEFT AND RIGHT INGUINAL HERNIA XIAFLEX INJECTIONS CYST REMOVAL ON LEFT FOOT W/ SCREW PLACEMENT 06/2018 RIGHT CARPAL TUNNEL 07/2018 FAMILY HISTORY FATHER: , HEART DISEASE, DIAGNOSED WITH UNSPECIFIED HEART DISEASE, OTHER SPECIFIED CONDITIONS INFLUENCING HEALTH STATUS MOTHER: , UNSPECIFIED HEART DISEASE SIBLINGS: 1 BROTHER IA, HYPERTENSION; 1 SISTER HEART ISSUES, HYPERTENSION DAUGHTER(S): ALIVE MATERNAL GRAND FATHER: LUNG CANCER MATERNAL GRAND MOTHER: DM, CVA, ARTHRITIS 1 BROTHER(S) , 1 SISTER(S) . 3DAUGHTER(S) - HEALTHY. FATHER - ANEURYSMMOTHER - CHFBROTHER - HEART ATTACKSNO KNOWN FAMILY HISTORY OF ANY UROLOGICALLY RELATED DISEASES\/CANCERS. SOCIAL HISTORY GENERAL: TOBACCO USE ARE YOU A:: NEVER SMOKER. OTHERS AT HOME: SPOUSE. EDUCATION LEVEL OF EDUCATION:FINISHED [employer] DIET: REGULAR. LANGUAGE ARMENIAN. RECREATIONAL DRUG USE DRUG USE?NO EXERCISE: WALKS. LEARNING BARRIERS / SPECIAL NEEDS BARRIERS TO LEARNING?NO HEARING IMPAIRED?NO VISION IMPAIRED?YES COGNITIVELY IMPAIRED?NO :CORRECTIVE LENSES READINESS TO LEARN?YES LEARNING PREFERENCES?YES :BOOKLETS, OTHER (PLEASE COMMENT) HANDS-ON LEARNING CAPABILITIES PRESENT?YES EMOTIONAL BARRIERS?NO SPECIAL DEVICES?NO CERTIFIED PROFESSIONAL MIDWIFE NEEDED?NO PAIN CLINIC PFS, CLERGY, PUBLIC HEALTH REFERRALS HAS THE PATIENT BEEN EDUCATED REGARDING HIS/HER PLAN OF CARE?YES HAS THE PATIENT BEEN EDUCATED REGARDING PAIN, THE RISK FOR PAIN, THE IMPORTANCE OF EFFECTIVE PAIN MANAGEMENT, AND THE PAIN ASSESSMENT PROCESS?YES LATEX QUESTIONNAIRE LATEX ALLERGY : HAVE YOU EVER DEVELOPED ANY TYPE OF REACTION AFTER HANDLING LATEX PRODUCTS SUCH RUBBER GLOVES, CONDOMS, DIAPHRAGMS, BALLOONS, SOCKS, OR UNDERWEAR?YES LATEX ALLERGY : HAVE YOU EVER DEVELOPED ANY TYPE OF REACTION DURING OR AFTER DENTAL APPOINTMENT, VAGINAL/RECTAL EXAMINATION, SURGICAL PROCEDURE, OR ANY OTHER EXPOSURE?YES - PLEASE INDICATE :RUBBER GLOVES - PLEASE INDICATE :DENTAL PROCEDURE DATE ASKED : 05/18/2019 LATEX RISK : HAVE YOU EVER HAD ANY DIFFICULTY BREATHING OR HIVES AFTER EATING OR HANDLING ANY FRUITS, OR VEGETABLES; SUCH KIWI, BANANAS, STONE FRUITS, OR CHESTNUTSNO LATEX RISK : DO YOU HAVE A PREVIOUS PERSONAL HISTORY OF MORE THAN NINE SURGERIES, SPINA BIFIDA, OR REPEATED CATHERIZATIONS? YES - PLEASE INDICATE : > 9 SURGERIES LATEX RISK : ARE YOU FREQUENTLY EXPOSED TO LATEX PRODUCTS IN YOUR OCCUPATION?NO CAFFEINE 1-2/DAY,. ADVANCE DIRECTIVE ADVANCE DIRECTIVE DISCUSSED WITH PATIENT:YES PT. DOES NOT HAVE ANY ADVANCED DIRECTIVES AND HE DECLINES HCP INFORMATION AT THIS TIME. TENRIISM NO EPISCOPAL BELIEFS THAT WOULD IMPACT HEALTH CARE. MARITAL STATUS: . ALCOHOL SCREENING POINTS: 6, INTERPRETATION: POSITIVE. OCCUPATION: RETIRED. SEXUAL HX HAD SEX IN THE LAST 12 MONTHS (VAGINAL, ORAL, OR ANAL)?: YES, WITH: WOMEN ONLY, USE PROTECTION?: NO, PREVENTION STRATEGIES DISCUSSED:: OTHER, HAVE YOU EVER HAD AN STD?: NO. REVIEWED WITH PATIENT 10/11/18 0941 JS REVIEWED WITH PT 02/08/19 1518 BVREVIEWED WITH PATIENT 06/08/19 1201 NLJREVIEWED WITH PATIENT 08/05/2019 0949 NLJ. HOSPITALIZATION/MAJOR DIAGNOSTIC PROCEDURE SURGERY RELATED REVIEW OF SYSTEMS REVIEWED BY: PROVIDER: . CONSTITUTIONAL: ANY CHANGE IN YOUR MEDICAL CONDITION? NO . CHILLS NO . FEVER NO . INFECTION: DO YOU HAVE NEW INFECTIONS? NO . DO YOU HAVE HISTORY OF MRSA? NO . MUSCULOSKELETAL: ANY NEW PATTERNS OF PAIN OR NUMBNESS? NO . GASTROENTEROLOGY: ANY NEW CHANGE IN BOWEL CONTROL? NO . GENITOURINARY: ANY NEW CHANGE IN BLADDER CONTROL? NO . IS THERE A CHANCE YOU COULD BE ? NO . HEMATOLOGY/LYMPH: DO YOU TAKE ANY BLOOD THINNERS? (FOR EXAMPLE- COUMADIN, PLAVIX, AGGRENOX, PLATEL, PRADAXA, OR XARELTO) NO . WHEN WAS YOUR LAST DOSE? DATE: TIME: . NEUROLOGY: HAVE YOU FALLEN IN THE PAST 12 MONTHS? NO . ANY NEW EXTREMITY NUMBNESS OR WEAKNESS? NO . CARDIOLOGY: DO YOU HAVE A PACEMAKER OR DEFIBRILLATOR? NO . RESPIRATORY: HAVE YOU BEEN SICK IN THE PAST WEEK? NO . FEVER NO . FLU LIKE SYMPTOMS? NO . COUGH NO . INTEGUMENTARY: DO YOU HAVE ANY RASHES OR OPEN SORES? NO . ALLERGIC/IMMUNO: ARE YOU ALLERGIC TO IV DYE? NO . ANY NEW ALLERGIES? NO . PSYCHIATRIC: DO YOU HAVE THOUGHTS OF HURTING YOURSELF OR SOMEONE ELSE? NO . ARE YOU ABUSED, NEGLECTED, OR IN AN UNSAFE ENVIRONMENT? NO . ENDOCRINOLOGY: ARE YOU DIABETIC? NO . OTHER: DO YOU NEED ANY PRESCRIPTIONS? NO . IF YES, PLEASE LIST: ____ . ANY NEW PROBLEMS WITH YOUR MEDICATIONS? NO . WHEN DID YOU LAST EAT? 08/04/20191999 . WHEN DID YOU LAST DRINK? 08/04/20191999 . WHAT DID YOU LAST DRINK? COKE . NAME OF PERSON DRIVING YOU HOME? MARIUSZ- . DO YOU HAVE ANY OTHER QUESTIONS OR CONCERNS NO . VITAL SIGNS WT 186.2 LBS, HT 71 IN, BMI 25.97 INDEX, BP 147/85 MM HG, HR 55 /MIN, RR 18 /MIN, TEMP 98.0 F, OXYGEN SAT % 98%, NA INITIALS AW 0941. ASSESSMENTS MYALGIA, OTHER SITE - M79.18 (PRIMARY) PROCEDURES PN TRIGGER POINT INJECTION NO STEROIDS DATE OF PROCEDURE : PRE PROCEDURE DIAGNOSIS 1. MYALGIA 2. PAIN AT RIGHT SHOULDER AREA POST PROCEDURE DIAGNOSIS 1. MYALGIA 2. PAIN AT RIGHT SHOULDER AREA. PROCEDURE TRIGGER POINT INJECTION AT RIGHT SHOULDER AREA. SURGEON DR. AUGUSTO PEREZ HAND CIGAR MAKING SUPERVISOR NONE ANESTHESIA LOCAL PRE PROCEDURE NOTE 59 YEAR-OLD PATIENT WITH HISTORY OF CHRONIC PAIN AT RIGHT SHOULDER AREA. I EVALUATED THE PATIENT AND REVIEWED THE CHART. THERE IS EVIDENCE OF BANDS OF TISSUE WITH RESTRICTION OF MOVEMENT AND PRESENCE OF TRIGGER POINT AT THE AFFECTED AREA. I WENT OVER THE RISKS, ALTERNATIVES, AND BENEFITS ASSOCIATED WITH THIS PROCEDURE. THE PATIENT WOULD LIKE TO PROCEED AND GAVE CONSENT TO PERFORM THE PROCEDURE. THE PATIENT DENIES UNEXPLAINABLE WEIGHT LOSS, FEVER, CHILLS, OR NEW CHANGES IN URINARY OR BOWEL CONTROL. DESCRIPTION OF PROCEDURE THE PATIENT WAS BROUGHT TO THE PROCEDURE ROOM AND PLACED IN THE SITTING POSITION. THE AREA WAS CLEANED WITH ALCOHOL. THE PROCEDURE WAS DONE USING ASEPTIC STERILE TECHNIQUES. I CHECKED LATERALITY AND THE LEVEL WHERE THE PROCEDURE WAS GOING TO BE PERFORMED WITH THE PATIENT AND THE SUPPORTING STAFF AT THE MOMENT OF THE TIME OUT IN THE PROCEDURE ROOM. USING A 25-GAUGE NEEDLE, TRIGGER POINTS WERE INJECTED WITH A TOTAL OF 40 ML OF BUPIVACAINE 0.25%. AGREED WITH THE PATIENT THE PROCEDURE WAS DONE WITHOUT STEROIDS. THERE WAS NO EVIDENCE OF BLOOD, PARESTHESIA OR CEREBROSPINAL FLUID DURING THE PROCEDURE. THE PATIENT WAS SENT TO THE RECOVERY ROOM. THE PATIENT WAS MOVING THE EXTREMITIES AND DOING WELL. THERE WAS NO COMPLICATION DURING THE PROCEDURE. POST PROCEDURE NOTE THE PATIENT WILL BE SEEN IN A FOLLOW UP IN THE NEXT FEW WEEKS. I AM LOOKING FOR LONG LASTING PAIN RELIEF WITH THIS INJECTION. INSTRUCTIONS WERE GIVEN, QUESTIONS WERE ANSWERED, AND THE PATIENT EXPRESSED UNDERSTANDING AND AGREED WITH THE PLAN. I, ISAK CHAWLA, DOCUMENTED THE ABOVE INFORMATION ACTING A SCRIBE FOR DR. PEREZ. I HAVE REVIEWED THE ABOVE DOCUMENT, WRITTEN BY ISAK MATTA AND I VERIFY THAT IT IS ACCURATE. PROCEDURE CODES 66606 INJ TRIGGER POINT 06/30 [facility] DISPOSITION & COMMUNICATION FOLLOW UP 3 WEEKS ELECTRONICALLY SIGNED BY AUGUSTO PEREZ MD, MD ON 08/11/2019 AT 01:55 PM EST DISCLAIMER : THIS IS A VISIT SUMMARY EXTRACTED FROM THE [employer] CHART. IT IS NOT A COPY OF THE [employer] PROGRESS NOTE. ROSA
== END ==
LOC: M PAIN 09:15
PROVIDERS: ATTEND Anesthesiology
DX: M79.18 Myalgia, other site (principal); E78.00 Pure hypercholesterolemia, unspecified; Z88.8 Allergy status to other drugs, medicaments and biological substances; Z91.030 Bee allergy status; Z91.040 Latex allergy status; Z79.899 Other long term (current) drug therapy

== ENCOUNTER → 2020-01-25 | Outpatient (CLI) | payer OTHER ==
[~2020-01-25] MED LIST changes: -BUPIVACAINE HCL 0.25% 30 ML VIAL As Ordered ONE; -TRIAMCINOLONE ACETONIDE SUSP 40 MG/ML VIAL (J3301) As Ordered ONE
== END ==
LOC: M PAIN 09:30
PROVIDERS: ATTEND Family Medicine
DX: M79.18 Myalgia, other site (principal)

== ENCOUNTER → 2020-02-14 | Outpatient (POV) | payer OTHER ==
[~2020-02-14] MED LIST changes: +BUPIVACAINE HCL 0.25% 10ML VIAL As Ordered ONE; +BUPIVACAINE HCL 0.25% 10ML VIAL ONE; +BUPIVACAINE HCL 0.25% 30ML VIAL As Ordered ONE; +BUPIVACAINE HCL 0.25% 30ML VIAL ONE
== END ==
LOC: M PAIN 09:00
PROVIDERS: ATTEND Anesthesiology
DX: M79.18 Myalgia, other site (principal)

== ENCOUNTER → 2022-04-02 | Outpatient (REF) | payer OTHER ==
[~2022-04-02] MED LIST changes: -BUPIVACAINE HCL 0.25% 10ML VIAL As Ordered ONE; -BUPIVACAINE HCL 0.25% 10ML VIAL ONE; -BUPIVACAINE HCL 0.25% 30ML VIAL As Ordered ONE; -BUPIVACAINE HCL 0.25% 30ML VIAL ONE
[2022-04-04 09:45] LABS: TOTAL PROTEIN 6.4 GM/DL (6.4-8.2)
[2022-04-04 12:12] LABS: ALBUMIN 4.06 GM/DL (3.29-5.55); ALBUMIN % 63.4 % (55.8-66.1); ALPHA-1-GLOBULIN % 4.2 % (2.9-4.9); ALPHA-1-GLOBULINS 0.27 GM/DL (0.17-0.41); ALPHA-2-GLOBULINS 0.57 GM/DL (0.42-0.99); ALPHA-2-GLOBULINS % 8.9 % (7.1-11.8); BETA-1-GLOBULINS 0.39 GM/DL (0.28-0.60); BETA-1-GLOBULINS % 6.1 % (4.7-7.2); BETA-2-GLOBULINS % 4.7 % (3.2-6.5); GAMMA GLOBULIN % 12.7 % (11.1-18.8); GAMMA GLOBULINS 0.81 GM/DL (0.65-1.58)
== END ==
LOC: M LAB REF 17:04
PROVIDERS: ATTEND Internal Medicine Nephrology
DX: N18.31 Chronic kidney disease, stage 3a (principal)

== ENCOUNTER → 2022-04-04 | Outpatient (REF) | payer OTHER ==
[2022-04-04 17:37] LABS: CREATININE, SERUM 1.3 MG/DL (0.6-1.3)
[2022-04-04 18:52] LABS: CREATININE CLEARANCE, URINE 92.5 ML/MIN (85-125)
== END ==
LOC: M LAB REF 17:05
PROVIDERS: ATTEND Internal Medicine Nephrology
DX: N18.31 Chronic kidney disease, stage 3a (principal)

== ENCOUNTER → 2024-10-27 | Outpatient (CLI) | payer MEDICARE, BC ==
[~2024-10-27] MED LIST changes: +ISOVUE-370 76% 100ML VIAL As Ordered ONE
== END ==
LOC: M RAD 14:38
PROVIDERS: ATTEND Surgery Trauma Surgery
DX: S15.0 Injury of carotid artery of neck (principal)
CPT/HCPCS: 70498; Q9967